=== PATIENT | female | born 1990 | race Two or more races ===

== ENCOUNTER 2024-07-18 11:40 | Emergency (ER) | payer MEDICAID, SELFPAY ==
[2024-07-18 12:16] VITALS: BP 105/72; PULSE 74; RESP 18; TEMP 37; O2SAT 98
--- NOTE | 2024-07-18 12:28 | EDNOTE_ITS ---
ED Eye Problem RME/HPI General Chief complaint: Eye Problems Stated complaint: LEFT EYE PAIN, ITCHING X1D Time Seen by Provider: 07/18/24 12:21 Source: patient Arrival date/time: 07/18/24 11:40 34-year-old female presents emergency department complaining of left eye lesion that is itchy and has been ongoing for 1 day. Mode of arrival: ambulatory Limitations: no limitations Related Data Previous Rx's ?Medication ?Instructions ?Recorded ibuprofen 800 mg tablet 800 mg PO TID PRN pain #30 tabs 02/23/21 ibuprofen 600 mg tablet 600 mg PO TID PRN pain #30 tabs 12/23/21 diphenhydramine HCl 25 mg capsule 25 mg PO TID #20 caps 08/25/22 (Benadryl) prednisone 50 mg tablet 50 mg PO QDAY #5 tabs 08/25/22 erythromycin 5 mg/gram (0.5 %) eye 0.5 inch ophthalmic (eye) QID 5 07/18/24 ointment days #3.5 grams Allergies Allergy/AdvReac Type Severity Reaction Status Date / Time acetaminophen [From Tylenol] Allergy Severe Swelling Verified 07/18/24 11:42 of Lip/Tongue/Throat Review of Systems Review of Systems Systems Reviewed: All systems reviewed, normal except as documented Constitutional Constitutional: Reports system reviewed and no additional complaints, except as documented, Denies body ache(s), Denies chills and Denies fever(s) Eyes Eyes: Reports system reviewed and no additional complaints, except as documented, Denies change in vision, Reports itchy eyes and Reports other (Lesion) ENT Ears, Nose, Mouth, and Throat: Reports system reviewed and no additional complaints, except as documented, Denies disequilibrium, Denies dizziness, Denies sore throat and Denies vertigo Cardiovascular Cardiovascular: Reports system reviewed and no additional complaints, except as documented, Denies chest pain and Denies dyspnea Respiratory Respiratory: Reports system reviewed and no additional complaints, except as documented, Denies chest congestion, Denies cough and Denies dyspnea Gastrointestinal Gastrointestinal: Reports system reviewed and no additional complaints, except as documented, Denies abdominal pain, Denies nausea and Denies vomiting Musculoskeletal Musculoskeletal: Reports system reviewed and no additional complaints, except as documented, Denies abnormal gait and Denies arthralgias Integumentary/Breasts Skin/Breast: Reports system reviewed and no additional complaints, except as documented, Denies erythema, Denies rash and Denies wounds Neurologic Neurologic: Reports system reviewed and no additional complaints, except as documented, Denies abnormal gait, Denies disequilibrium, Denies dizziness and Denies vertigo Allergic/Immunologic Allergic/Immunologic: Reports itchy eyes Past Medical History Past Medical History NEUROLOGIC: Negative Neurological Disorders CARDIAC: Negative Cardiac Disorders or Congestive Heart Failure RESPIRATORY: Negative Chronic Obstructive Pulmonary Disease (COPD) GASTROINTESTINAL: Negative Gastrointestinal Disorders GENITOURINARY: Negative Genitourinary Disorders or Renal Disease REPRODUCTIVE: Negative Pelvic Inflammatory Disease MUSCULOSKELETAL: Negative Musculoskeletal Disorders ENDOCRINE: Negative Endocrine Disorders, Diabetes Mellitus Type 1 or Diabetes Mellitus Type 2 HEMATOLOGIC: Negative Blood Disorders OTHER HISTORY: Negative Autoimmune Disease, Blood Transfusions or Cancer Surgical History SURGICAL: Positive Section Social History SMOKING STATUS: Never smoker ED Exam General Limitations: Present no limitations General appearance: Present alert and in no apparent distress Head Head exam: Present atraumatic Eye Eye exam: Present normal appearance, PERRL and EOMI Expanded Eye Exam Eyelids: left: stye ENT ENT exam: Present normal exam, normal oropharynx and mucous membranes moist Neck Neck exam: Present normal inspection, full ROM and trachea midline Chest Chest inspection: Present normal inspection and symmetric chest wall rise Respiratory Respiratory exam: Present normal lung sounds bilaterally Cardiovascular Cardiovascular exam: Present regular rate, normal rhythm and normal heart sounds Abdominal Exam Abdominal exam: Present soft and normal bowel sounds Extremities Exam Extremities exam: Present normal inspection and full ROM Back Exam Back exam: Present normal inspection and full ROM Neurological Exam Neurological exam: Present alert, oriented X3 and CN II-XII intact Psychiatric Psychiatric exam: Present normal affect and normal mood Skin Skin exam: Present warm, dry, intact and normal color Course Quality Measures none Vital Signs Vital signs: Vital Signs Temperature 98.6 F 07/18/24 12:16 Pulse Rate 74 07/18/24 12:16 Respiratory Rate 18 07/18/24 12:16 Blood Pressure 105/72 07/18/24 12:16 Pulse Oximetry (%) 98 07/18/24 12:16 Oxygen Delivery Method Room Air 07/18/24 12:16 98% room air within normal limits Eye MDM Narrative MDM Narrative:: 34-year-old female presents emergency department complaining of left eye lesion that is itchy and has been ongoing for 1 day. Patient denies any vision changes. Patient data External records reviewed:: [facility] previous records Clinical information provided by:: patient Social determinants that could affect healthcare access:: none Patient has the following chronic illnesses:: See chart How is presenting disease/condition affected by chronic disease/condition?: uneffected by Evaluation data The following diagnostics were reviewed and interpreted by me:: other (specify) (Not applicable) Lab and/or radiology exams considered but not ordered:: N/A Interpretation Summary: N/A Medications / Prescriptions Medications or Prescriptions considered but not ordered:: N/A Medication administrations:: N/A Consultations Consultation(s) initiated? (list below): No Diagnosis Eye Problem Differential Diagnosis: corneal abrasion, conjunctivitis, periorbital cellulitis and corneal ulcer Most likely diagnosis given after review of the tests above:: Hordeolum Admission Indicated Admission indicated?: not indicated Admission Request Was there a request for admission?: No Disposition Plan Disposition Plan: Discharge Discharge Attestation Discharge Attestation: The patient and all family members were given an opportunity to ask questions and understood the discharge instructions. Discharge instructions specifically effects, indications for sooner follow up or return to the emergency department, and the expected course of current diagnosis. Patient condition: Stable Discharge Plan Plan Patient Disposition: HOME (Self Care) Disposition Comment: Stable Prescriptions/Referrals Prescriptions/Med Rec: New erythromycin 5 mg/gram (0.5 %) ointment 0.5 inch ophthalmic (eye) QID 5 Days Qty: 3.5 0RF No Action ibuprofen 800 mg tablet 800 mg PO TID PRN (Reason: pain) Qty: 30 0RF ibuprofen 600 mg tablet 600 mg PO TID PRN (Reason: pain) Qty: 30 0RF diphenhydramine HCl [Benadryl] 25 mg capsule 25 mg PO TID Qty: 20 0RF prednisone 50 mg tablet 50 mg PO QDAY Qty: 5 0RF Problem List Clinical Impression: Hordeolum Patient/Caregiver Discharge Instructions Discharge Activity: activity as tolerated Education Materials: ED Sty Additional Instructions: Warm compress as needed Apply medication as prescribed. Follow-up with primary care provider in 2 to 3 days. Return to emergency department for any worsening symptoms or as needed. Print Language: Hungarian Stand Alone Forms: Rose Award Info., Patient Portal Info Letter PA/TRAN Supervising Physician PA/TRAN Supervising Physician: Dr. Santana
== END 2024-07-18 13:21 | disposition home or self-care (01) ==
LOC: SERX 12:57
PROVIDERS: Emergency Provider Emergency Medicine
DX: H00.016 Hordeolum externum left eye, unspecified eyelid (principal)
CPT/HCPCS: 99281

== ENCOUNTER 2025-02-28 17:32 | Emergency (ER) | payer MEDICAID, SELFPAY ==
[2025-02-28 18:08] VITALS: BP 146/88; PULSE 73; RESP 18; TEMP 37.2; O2SAT 99
--- NOTE | 2025-02-28 18:46 | XR_ITS ---
Examination: Abdomen sonogram, complete Date and time of exam: February 28, 2025 1858 hours INDICATIONS: Right upper abdominal pain beginning today. Technique: Multiple real-time grayscale transabdominal sonographic images of the abdomen have been obtained. Findings: Multiple gallstones Gallbladder wall 0.37 cm but the gallbladder is contracted Coronal and 0.3 cm Pancreaticoduodenal Travis 5 cm Aorta not enlarged Liver 15.1 cm fatty infiltration no focal liver lesions Normal hepatopedal portal venous flow Patent IVC Right kidney 9.8 cm renal cortex 2.0 cm Left kidney 9.6 cm cortex 1.9 cm Mild left hydronephrosis Spleen 10.0 cm IMPRESSION: Cholelithiasis, negative for cholecystitis Mild left hydronephrosis, clinical correlation is advised
--- NOTE | 2025-02-28 18:50 | PD.EDADULT ---
ED General RME/HPI General Chief complaint: Shortness of Breath/Dyspnea Stated complaint: SOB, right shoulder pain today Time Seen by Provider: 02/28/25 18:18 Arrival date/time: 02/28/25 17:32 RME / HPI RME / HPI narrative: 35-year-old female presents to the ED with a complaint of right shoulder pain and shortness of breath. She states all of her symptoms began last week when she had some upper abdominal pain with nausea and fever. She states the pain is worse after eating so she is only been eating very tiny amounts and drinking a lot of water. Her fever ended last week. Related Data Previous Rx's ?Medication ?Instructions ?Recorded ibuprofen 800 mg tablet 800 mg PO TID PRN pain #30 tabs 02/23/21 ibuprofen 600 mg tablet 600 mg PO TID PRN pain #30 tabs 12/23/21 diphenhydramine HCl 25 mg capsule 25 mg PO TID #20 caps 08/25/22 (Benadryl) prednisone 50 mg tablet 50 mg PO QDAY #5 tabs 08/25/22 Allergies Allergy/AdvReac Type Severity Reaction Status Date / Time acetaminophen (From Tylenol) Allergy Severe Swelling Verified 02/28/25 17:37 of Lip/Tongue/Throat Review of Systems Review of Systems Systems Reviewed: All systems reviewed, normal except as documented Past Medical History Past Medical History NEUROLOGIC: Negative Neurological Disorders CARDIAC: Negative Cardiac Disorders or Congestive Heart Failure RESPIRATORY: Negative Chronic Obstructive Pulmonary Disease (COPD) GASTROINTESTINAL: Negative Gastrointestinal Disorders GENITOURINARY: Negative Genitourinary Disorders or Renal Disease REPRODUCTIVE: Negative Pelvic Inflammatory Disease MUSCULOSKELETAL: Negative Musculoskeletal Disorders ENDOCRINE: Negative Endocrine Disorders, Diabetes Mellitus Type 1 or Diabetes Mellitus Type 2 HEMATOLOGIC: Negative Blood Disorders OTHER HISTORY: Negative Autoimmune Disease, Blood Transfusions or Cancer Surgical History SURGICAL: Positive Section Social History SMOKING STATUS: Never smoker ED Exam Narrative Physical exam: A&O, afebrile and non-toxic appearing 35-year-old female, no acute distress. Lung sounds are clear, RRR, Abdomen is soft, mild generalized tenderness with moderate tenderness in the right upper quadrant. No rebound or guarding. Abdomen is non-distended. Moves all extremities well. Course Course Course Narrative: CBC reveals a an elevated white count of 12.4, normal H&H, normal platelets, minimally elevated ANC of 7.8. CMP reveals normal electrolytes with the exception of a minimally elevated glucose of 107, normal renal function, normal liver function, total bilirubin is normal at 0.3, amylase and lipase are normal at 61/34. Urinalysis reveals clear colorless urine with a specific gravity 1.012 with negative nitrites, negative leukocyte esterase and no bacteria. Abd US: Cholelithiasis, negative for cholecystitis. Mild left hydronephrosis, clinical correlation is advised. Quality Measures none Orders Category Date Time Status NPO STAT Care 02/28/25 18:46 Active US abdomen Stat Exams 02/28/25 18:46 Completed Amylase Stat Lab 02/28/25 20:00 Completed CBC Stat Lab 02/28/25 20:00 Completed Comprehensive Metabolic Panel Stat Lab 02/28/25 20:00 Completed HCG Qualitative,Urine Stat Lab 02/28/25 18:53 Completed Lipase Stat Lab 02/28/25 20:00 Completed Magnesium Stat Lab 02/28/25 20:00 Completed Phosphorous Stat Lab 02/28/25 20:00 Completed Urinalysis, C/S if Indicated Stat Lab 02/28/25 18:53 Completed Ketorolac Inj [Toradol Inj] Med 02/28/25 18:45 Discontinued 30 mg IM X1 ONE Ondansetron Inj [Zofran Inj] Med 02/28/25 18:46 Discontinued 4 mg IVP X1 ONE Ondansetron Odt [Zofran Odt] Med 02/28/25 19:42 Discontinued 4 mg PO X1 ONE Vital Signs Vital signs: Vital Signs Temperature 99.0 F 02/28/25 18:08 Pulse Rate 73 02/28/25 18:08 Respiratory Rate 18 02/28/25 18:08 Blood Pressure 146/88 H 02/28/25 18:08 Pulse Oximetry (%) 99 02/28/25 18:08 Oxygen Delivery Method Room Air 02/28/25 18:08 Discharge Plan Plan Patient Disposition: HOME (Self Care) Discharge Disposition comment: Stable Prescriptions/Referrals Prescriptions/Med Rec: No Action ibuprofen 800 mg tablet 800 mg PO TID PRN (Reason: pain) Qty: 30 0RF ibuprofen 600 mg tablet 600 mg PO TID PRN (Reason: pain) Qty: 30 0RF diphenhydramine HCl [Benadryl] 25 mg capsule 25 mg PO TID Qty: 20 0RF prednisone 50 mg tablet 50 mg PO QDAY Qty: 5 0RF Referrals: No Primary/Family,Physician [Primary Care Provider] - In 1 week Problem List Clinical Impression: Cholelithiasis, Biliary colic Patient/Caregiver Discharge Instructions Education Materials: What Are Gallstones, Treating Gallstones, ED Gallstones with Biliary Colic Additional Instructions: Contacte a johnson m?dico de cabecera para que le derive a un cirujano para la extirpaci?n electiva de la ves?cula biliar. Regrese a urgencias ante cualquier s?ntoma nuevo o que empeore, tomasz fiebre, v?mitos o aumento del dolor. Print Language: Citizen Of [place] Stand Alone Forms: Rose Award Info., Patient Portal Info Letter PA/ASSISTANT FOOD SERVICE DIRECTOR Supervising Physician PA/ASSISTANT FOOD SERVICE DIRECTOR Supervising Physician: Dr. Layton [facility] Narrative MDM hospital course: Symptoms, exam and diagnostic studies are consistent with: Cholelithiasis without cholecystitis. Patient was discharged home in stable condition. Patient/family advised to follow-up with their PCP in 24-48 hours. Encouraged to return to the ED for any new or worsening symptoms. Clinical Information Provided by patient (Through manager training and development) Medical Records Reviewed None Meds/Rx Considered, not Ordered None Describe details: N/A Labs/Rad/Tests considered, not Ordered None Describe details: N/A Chronic Illness/Social Conditions which may negatively complicate care or outcome(s)-explain: None or not applicable EKG EKG not done EKG Interpretation narrative: N/A Lab Interpretation Labs: interpreted by mi Lab(s) interpretation(s): As noted above Imaging Imaging interpretation: see narrative above Provider imaging interpretation(s): N/A Radiology reports / interpretation(s): As noted above Medication Administration(s) Medication Administration History Discontinued Medications Ketorolac Tromethamine (Ketorolac Inj 60 Mg/2 Ml Vial) 30 mg IM X1 ONE Stop: 02/28/25 18:46 Last Admin: 02/28/25 19:58 Dose: 30 mg Documented By: Ondansetron HCl (Ondansetron Inj 2 Mg/Ml Inj 2 Ml) 4 mg IVP X1 ONE; Protocol Stop: 02/28/25 18:47 Last Admin: 02/28/25 19:41 Dose: Not Given Documented By: Non-Admin Reason: Cancelled by Provider Comments: error in route. Ondansetron HCl (Ondansetron Odt 4 Mg Tabrap) 4 mg PO X1 ONE; Protocol Stop: 02/28/25 19:43 Last Admin: 02/28/25 19:57 Dose: 4 mg Documented By: As noted above Diagnosis Differential diagnosis: Cholelithiasis, cholecystitis, pancreatitis, gastritis Differential dx and/or dx ruled out: Cholecystitis, pancreatitis Most likely dx, and/or detailed dx discussion: Cholelithiasis with biliary colic Dispositon Disposition: Discharge Home Disposition comments: Patient is stable for discharge
[2025-02-28 18:59] LABS: Collection Type, Urine Clean Catch
[2025-02-28 19:04] LABS: Bilirubin,Urine Negative (Negative); Blood,Urine Negative (Negative); Clarity,Urine Clear (Clear/Hazy); Color,Urine Colorless (Lt Yel-Yel); Culture Indicated,Urine Not Indicated; Glucose, Urine Negative (Negative); Ketones,Urine Negative (Negative); Leukocyte Esterase,Urine Negative (Negative); Nitrite,Urine Negative (Negative); PH,Urine 5.5 (5.0-7.0); Protein,Urine Negative (Neg - Trace); RBC,Urine 1 /hpf (0-3); Specific Gravity,Urine 1.012 (1.001-1.035); Squamous Epithelial Cell,Urine 6 /hpf (0-5); Urobilinogen,Urine Negative mg/dL (0.0-1.0); WBC,Urine 1 /hpf (0-5)
[2025-02-28 19:07] LABS: HCG Qualitative,Urine Negative
--- NOTE | 2025-02-28 19:42 | PC.NURSE ---
IVP Zofran canceled by provider, new order for Zofran ODT 4mg PO x1 now. Pharmacy aware.
[2025-02-28] MEDS: ONDANSETRON ODT 4 MG TABRAP PO (19:57)
[2025-02-28] MEDS: KETOROLAC INJ 60 MG/2 ML VIAL 30 MG IM (19:58)
[2025-02-28 20:14] LABS: Basophils # (Auto) 0.1 Thou/mm3 (0.0-0.2); Basophils % (Auto) 1 % (0-2.5); Eosinophils # (Auto) 0.3 Thou/mm3 (0.0-0.5); Eosinophils % (Auto) 3 % (0-10); Hematocrit 41.3 % (36.0-46.0); Hemoglobin 14.4 g/dL (12.0-16.0); Immature Granulocytes Auto 0.05 Thou/mm3 (0.00-0.00); Lymphocytes # (Auto) 3.4 Thou/mm3 (1.0-4.8); Lymphocytes % (Auto) 28 % (10-50); Mean Corpuscular HGB Conc 34.9 g/dl (31.0-37.0); Mean Corpuscular Hemoglobin 29.8 pg (25.0-35.0); Mean Corpuscular Volume 85 fL (80-100); Monocytes # (Auto) 0.7 Thou/mm3 (0.0-0.8); Monocytes % (Auto) 6 % (0-12); Neutrophils # (Auto) 7.8 Thou/mm3 (1.8-7.7); Neutrophils % (Auto) 63 % (37-80); Nucleated Red Blood Cell # 0.00 Thou/mm3 (0.00-0.00); Nucleated Red Blood Cell % 0 /100 WBC (0); Platelet Count 397 Thou/mm3 (140-440); RDW Standard Deviation 38.2 fL (36.4-46.3); Red Blood Count 4.84 Miln/mm3 (4.00-5.20); White Blood Count 12.4 Thou/mm3 (3.6-11.0)
[2025-02-28 20:35] LABS: Alanine Aminotransferase 12 U/L (10-49); Albumin, Serum 4.5 gm/dL (3.5-5.0); Albumin/Globulin Ratio 1.6 (1.2-2.2); Alkaline Phosphatase 154 U/L (46-116); Amylase 61 U/L (30-118); Anion Gap 9 (7-16); Aspartate Amino Transferase 12 U/L (0-34); BUN/Creatinine Ratio 17 Ratio (12-20); Bilirubin,Total 0.3 mg/dL (0.3-1.2); Blood Urea Nitrogen 17 mg/dL (9-23); Calcium 9.8 mg/dL (8.3-10.6); Calcium (Corrected) 9.8 mg/dL (8.5-10.1); Carbon Dioxide 28.0 mMol/L (20.0-31.0); Chloride 103 mMol/L (98-107); Creatinine (Component) 1.0 mg/dL (0.6-1.3); Globulin 2.9 gm/dL (2.3-3.5); Glucose 107 mg/dL (74-106); Lipase 34 U/L (12-53); Magnesium 1.7 mg/dL (1.6-2.6); Osmolality,Calculated 280 (275-295); Phosphorous 4.4 mg/dL (2.4-5.1); Potassium 3.5 mMol/L (3.4-5.1); Sodium 140 mMol/L (136-145); Total Protein 7.4 gm/dL (5.7-8.2); eGFR > 60 See Note
--- NOTE | 2025-02-28 20:51 | EDRME_ITS ---
Rapid Medical Screening Exam [facility] Arrival date/time: 02/28/25 17:32 35-year-old female presents to the ED with a complaint of right shoulder pain and shortness of breath. She states all of her symptoms began last week when she had some upper abdominal pain with nausea and fever. She states the pain is worse after eating so she is only been eating very tiny amounts and drinking a lot of water. Her fever ended last week. Chief Complaint: Shortness of Breath/Dyspnea Time Seen by Provider: 02/28/25 18:18 Vital signs: Vital Signs Temperature 99.0 F 02/28/25 18:08 Pulse Rate 73 02/28/25 18:08 Respiratory Rate 18 02/28/25 18:08 Blood Pressure 146/88 H 02/28/25 18:08 Pulse Oximetry (%) 99 02/28/25 18:08 Oxygen Delivery Method Room Air 02/28/25 18:08 RME Narrative: 35-year-old female presents to the ED with a complaint of right shoulder pain and shortness of breath. She states all of her symptoms began last week when she had some upper abdominal pain with nausea and fever. She states the pain is worse after eating so she is only been eating very tiny amounts and drinking a lot of water. Her fever ended last week.
[2025-02-28 22:42] VITALS: BP 126/85; PULSE 59; RESP 18; TEMP 36.4; O2SAT 99
[2025-02-28 23:16] VITALS: RESP 18
== END 2025-02-28 23:17 | disposition home or self-care (01) ==
PROVIDERS: Physician Assistant; Emergency Provider Family Medicine
DX: K80.20 Calculus of gallbladder without cholecystitis without obstruction (principal); N13.30 Unspecified hydronephrosis; D72.829 Elevated white blood cell count, unspecified
CPT/HCPCS: 36415; 76700; 80053; 81001; 81025; 82150; 83690; 83735; 84100; 85025; 96372; 99283; J1885; Q0162

== ENCOUNTER 2025-07-17 03:31 | Emergency (ER) | payer MEDICAID, SELFPAY ==
[2025-07-17 03:33] VITALS: BMI 27.3
[2025-07-17 03:58] VITALS: BP 122/87; PULSE 72; RESP 16; TEMP 36.6; O2SAT 98
--- NOTE | 2025-07-17 05:07 | XR_ITS ---
Examination: CT abdomen and pelvis without contrast. Coronal 3-D reconstructions. Sagittal 2-D reconstructions. Date and time of exam: July 17, 2025, 0615 hours INDICATIONS: Epigastric pain beginning this morning CTDI: vol (mGy): 9.26 DLP: (mGycm): 513 Technique: Axial images of the abdomen have been obtained, 3 mm slice thickness Intravenous contrast material has not been administered. Low dose protocols were performed. One or more of the following dose reduction techniques were used; automated exposure control, adjustment of the mA and/or KV according to patient size, use of iterative reconstruction technique. Findings: No focal liver or splenic lesions Gallstones Gallbladder wall appears mildly thickened No extrahepatic biliary tract dilatation Pancreas is not enlarged no peripancreatic edema Normal adrenal glands No renal or ureteral calculi, no hydronephrosis Aorta normal size Normal appendix Small fat-containing umbilical hernia No bowel obstruction or diverticulitis Intact urinary bladder Anteverted uterus No pelvic mass Intact osseous structures IMPRESSION: Cholelithiasis, recommend hepatobiliary sonography to exclude cholecystitis No common bile duct stones Normal appendix No bowel obstruction or diverticulitis
--- NOTE | 2025-07-17 05:08 | PD.EDRME ---
Rapid Medical Screening Exam RME Arrival date/time: 07/17/25 03:31 This is a case of 35-year-old female who came in in the emergency room due to abdominal pain after eating spicy food patient have on and off abdominal pain for 1 week which become worse today associated with nausea vomiting denies diarrhea constipation or blood in stool Chief Complaint: Abdominal Pain Time Seen by Provider: 07/17/25 05:07 Vital signs: Vital Signs Temperature 97.9 F 07/17/25 03:58 Pulse Rate 72 07/17/25 03:58 Respiratory Rate 16 07/17/25 03:58 Blood Pressure 122/87 H 07/17/25 03:58 Pulse Oximetry (%) 98 07/17/25 03:58 Oxygen Delivery Method Room Air 07/17/25 03:58 Exam: Patient have tenderness on the epigastric area and periumbilical area with mild tenderness in the left lower quadrant no guarding no rebound no rigidity Clinical Impression: Abdominal pain
[2025-07-17] MEDS: ONDANSETRON ODT 4 MG TABRAP PO (05:30)
[2025-07-17] MEDS: MG HYD/AL HYD/SIME (Maalox Reg) SUSP 30 ML UDC PO (05:30)
[2025-07-17] MEDS: FAMOTIDINE 20 MG TABLET 40 MG PO (05:30)
[2025-07-17] MEDS: LIDOCAINE VISCOUS 2% 15 ML UDC PO (05:30)
[2025-07-17 05:33] LABS: Collection Type, Urine Clean Catch
[2025-07-17 05:40] LABS: Basophils # (Auto) 0.1 Thou/mm3 (0.0-0.2); Basophils % (Auto) 1 % (0-2.5); Eosinophils # (Auto) 0.1 Thou/mm3 (0.0-0.5); Eosinophils % (Auto) 1 % (0-10); Hematocrit 42.7 % (36.0-46.0); Hemoglobin 14.3 g/dL (12.0-16.0); Immature Granulocytes Auto 0.04 Thou/mm3 (0.00-0.00); Lymphocytes # (Auto) 2.3 Thou/mm3 (1.0-4.8); Lymphocytes % (Auto) 22 % (10-50); Mean Corpuscular HGB Conc 33.5 g/dl (31.0-37.0); Mean Corpuscular Hemoglobin 28.8 pg (25.0-35.0); Mean Corpuscular Volume 86 fL (80-100); Monocytes # (Auto) 0.6 Thou/mm3 (0.0-0.8); Monocytes % (Auto) 6 % (0-12); Neutrophils # (Auto) 7.2 Thou/mm3 (1.8-7.7); Neutrophils % (Auto) 70 % (37-80); Nucleated Red Blood Cell # 0.00 Thou/mm3 (0.00-0.00); Nucleated Red Blood Cell % 0 /100 WBC (0); Platelet Count 376 Thou/mm3 (140-440); RDW Standard Deviation 38.9 fL (36.4-46.3); Red Blood Count 4.96 Miln/mm3 (4.00-5.20); White Blood Count 10.3 Thou/mm3 (3.6-11.0)
[2025-07-17 05:42] LABS: HCG Qualitative,Urine Negative
[2025-07-17 05:43] LABS: Bilirubin,Urine Negative (Negative); Blood,Urine Negative (Negative); Clarity,Urine Clear (Clear/Hazy); Color,Urine Colorless (Lt Yel-Yel); Glucose, Urine Negative (Negative); Ketones,Urine Trace (Negative); Leukocyte Esterase,Urine Negative (Negative); Nitrite,Urine Negative (Negative); PH,Urine 6.0 (5.0-7.0); Protein,Urine Negative (Neg - Trace); RBC,Urine 2 /hpf (0-3); Specific Gravity,Urine 1.024 (1.001-1.035); Squamous Epithelial Cell,Urine 7 /hpf (0-5); Urobilinogen,Urine Negative mg/dL (0.0-1.0); WBC,Urine < 1 /hpf (0-5)
[2025-07-17 05:53] LABS: Alanine Aminotransferase 16 U/L (10-49); Albumin, Serum 4.6 gm/dL (3.5-5.0); Albumin/Globulin Ratio 1.6 (1.2-2.2); Alkaline Phosphatase 128 U/L (46-116); Anion Gap 12 (7-16); Aspartate Amino Transferase 19 U/L (0-34); BUN/Creatinine Ratio 17 Ratio (12-20); Bilirubin,Total 0.3 mg/dL (0.3-1.2); Blood Urea Nitrogen 12 mg/dL (9-23); Calcium 9.2 mg/dL (8.3-10.6); Calcium (Corrected) 9.2 mg/dL (8.5-10.1); Carbon Dioxide 26.4 mMol/L (20.0-31.0); Chloride 103 mMol/L (98-107); Creatinine (Component) 0.7 mg/dL (0.6-1.3); Estimated Creatinine Clearance 91.5 mL/min (>60); Globulin 2.9 gm/dL (2.3-3.5); Glucose 123 mg/dL (74-106); Lipase 32 U/L (12-53); Osmolality,Calculated 281 (275-295); Potassium 3.6 mMol/L (3.4-5.1); Sodium 141 mMol/L (136-145); Total Protein 7.5 gm/dL (5.7-8.2); eGFR > 60 See Note
[2025-07-17 08:09] VITALS: BP 119/75; PULSE 61; RESP 17; TEMP 36.7; O2SAT 99
--- NOTE | 2025-07-17 08:11 | PC.NURSE ---
PT IN FOR EPIGASTRIC PAIN THAT STARTED AROUND 0200 THIS MORNING FROM HER SLEEP. PT STATES THAT SHE HAS HAD THIS TYPE OF PAIN IN THE PAST WITH LEFT SHOULDER PAIN. AT THAT TIME PT WAS INFORMED THAT SHE HAD GALLSTONES. PT HAS NOT FOLLOWED UP WITH SURGON. PT DID NOT FOLLOW UP WITH PMD. PT CAME IN TODAY FOR SIMILAR PAIN. PT IS A/OX4, RATES PAIN AT 9/10, DECRIBES IS SHARP PAIN AND IS ISOLATED TO EPIGASTRIC AREA. PT DID NOT TAKE ANY PAIN MEDICATION PRIOR TO ARRIVAL. CALL LIGHT WITH IN REACH. PT AWAITING TO BE SEEN BY .
[2025-07-17 08:47] VITALS: BP 119/75; PULSE 65; O2SAT 98
--- NOTE | 2025-07-17 12:08 | PD.EDABDPN ---
ED Abdominal Pain RME/HPI General Chief Complaint: Abdominal Pain Stated complaint: EPIGASTRIC PAIN Time seen by provider: 07/17/25 05:07 Arrival date/time: 07/17/25 03:31 Limitations: no limitations RME / HPI RME / HPI narrative: DR. LINN AUGUSTE ED EVALUATION: 35-year-old female who presented to the emergency department with left upper quadrant and epigastric pain. Patient states she has had the pain since yesterday. She denies nausea, vomiting, diarrhea, fevers, shakes, chills, sweats. No chest pain or dyspnea. No recent cough. She has been eating normally with normal and regular bowel movements. No further medical complaints. Related Data Previous Rx's ?Medication ?Instructions ?Recorded ibuprofen 800 mg tablet 800 mg PO TID PRN pain #30 tabs 02/23/21 ibuprofen 600 mg tablet 600 mg PO TID PRN pain #30 tabs 12/23/21 diphenhydramine HCl 25 mg capsule 25 mg PO TID #20 caps 08/25/22 (Benadryl) prednisone 50 mg tablet 50 mg PO QDAY #5 tabs 08/25/22 meloxicam 15 mg tablet 15 mg PO QDAY #10 tabs 02/28/25 ondansetron 4 mg disintegrating 4 mg PO Q6H PRN nausea and 02/28/25 tablet vomiting #10 tabs famotidine 20 mg tablet (Pepcid) 20 mg PO BID GERD 7 days #14 tabs 07/17/25 Allergies Allergy/AdvReac Type Severity Reaction Status Date / Time acetaminophen (From Tylenol) Allergy Severe Swelling Verified 02/28/25 17:37 of Lip/Tongue/Throat Review of Systems Review of Systems Systems Reviewed: All systems reviewed, normal except as documented Past Medical History Past Medical History GASTROINTESTINAL: Positive Gastrointestinal Disorders and Gall Bladder Disease (STONES) Surgical History SURGICAL: Positive Section (X5) Social History SMOKING STATUS: Never smoker SUBSTANCE USE: does not use ALCOHOL: Never ED Exam General Limitations: Present no limitations General appearance: Present alert and in no apparent distress Head Head exam: Present atraumatic, normocephalic and normal inspection Eye Eye exam: Present normal appearance, PERRL and EOMI ENT ENT exam: Present normal exam, normal oropharynx and mucous membranes moist Neck Neck exam: Present normal inspection, full ROM and trachea midline Chest Chest inspection: Present normal inspection and symmetric chest wall rise Respiratory Respiratory exam: Present normal lung sounds bilaterally Cardiovascular Cardiovascular exam: Present regular rate, normal rhythm and normal heart sounds Abdominal Exam Abdominal exam: Present soft and normal bowel sounds; Absent tenderness (Patient has absolutely no abdominal tenderness whatsoever to palpation. She certainly has no right upper quadrant tenderness to even deep palpation. No right lower quadrant tenderness. No rigidity, rebound, guarding. Negative CVA tenderness bilaterally. ) Extremities Exam Extremities exam: Present normal inspection and full ROM Back Exam Back exam: Present normal inspection and full ROM; Absent CVA tenderness (R) or CVA tenderness (L) Neurological Exam Neurological exam: Present alert, oriented X3 and CN II-XII intact Psychiatric Psychiatric exam: Present normal affect and normal mood Skin Skin exam: Present warm, dry, intact and normal color Course Quality Measures none Orders Category Date Time Status CT abdomen pelvis wo con Stat Exams 07/17/25 05:07 Completed CBC Stat Lab 07/17/25 05:29 Completed Comprehensive Metabolic Panel Stat Lab 07/17/25 05:29 Completed HCG Qualitative,Urine Stat Lab 07/17/25 05:23 Completed Lipase Stat Lab 07/17/25 05:29 Completed Urinalysis Stat Lab 07/17/25 05:23 Completed Famotidine [Pepcid] Med 07/17/25 05:12 Discontinued 40 mg PO X1 ONE Lidocaine 2% Viscous [Xylocaine 2% Viscous] Med 07/17/25 05:12 Discontinued 15 ml PO X1 ONE Ondansetron Odt [Zofran Odt] Med 07/17/25 05:13 Discontinued 4 mg PO X1 ONE mg Hyd/Al Hyd/Kayleen Susp [Maalox Susp] Med 07/17/25 05:12 Discontinued 30 ml PO X1 ONE Vital Signs Vital signs: Vital Signs Temperature 97.9 F 07/17/25 03:58 Pulse Rate 72 07/17/25 03:58 Respiratory Rate 16 07/17/25 03:58 Blood Pressure 122/87 H 07/17/25 03:58 Pulse Oximetry (%) 98 07/17/25 03:58 Oxygen Delivery Method Room Air 07/17/25 03:58 Abdominal Pain MDM MDM Narrative MDM Narrative:: I, Yolande Tariq am scribing for and in the presence of Dr. Tellez. 35-year-old female with LUQ and epigastric pain and a completely benign abdominal exam. Workup initiated to evaluate for gastrointestinal causes. Differential diagnoses include gastritis, dyspepsia, and musculoskeletal pain. Patient had blood work, urine as well as a CT abdomen pelvis. The CT is being read as showing Cholelithiasis but no evidence of cholecystitis. Dr. Milan recommended a right upper quadrant ultrasound however patient has absolutely no tenderness there whatsoever. I do not feel that it is warranted. Patient's blood work is very reassuring. Her CBC is normal. No leukocytosis. Electrolytes are normal, renal functions normal, liver function tests are normal, lipase is normal. Urinalysis shows no evidence of or UTI. No hematuria. I recommended that the patient follow-up with her primary care doctor or in the [facility] clinic within the next several days and she agreed to do so. Also will write a prescription for Pepcid hopefully this will help patient. Patient data External records reviewed:: [facility] previous records Clinical information provided by:: patient Social determinants that could affect healthcare access:: none Patient has the following chronic illnesses:: Gallstones and x5 sections. How is presenting disease/condition affected by chronic disease/condition?: exacerbated by Evaluation data The following diagnostics were reviewed and interpreted by me:: lab results and radiology exam(s) Lab and/or radiology exams considered but not ordered:: none Interpretation Summary: See MDM narrative above. RADIOLOGY Procedure(s): CT abdomen pelvis wo [facility] Accession Number(s): [id number] cc: Keshawn Melendrez MD; NO PRIMARY/FAMILY,PHYSICIAN; Arturo Dominguez~ Examination: CT abdomen and pelvis without contrast. Coronal 3-D reconstructions. Sagittal 2-D reconstructions. Date and time of exam: July 17, 2025, 0615 hours INDICATIONS: Epigastric pain beginning this morning CTDI: vol (mGy): 9.26 DLP: (mGycm): 513 Technique: Axial images of the abdomen have been obtained, 3 mm slice thickness Intravenous contrast material has not been administered. Low dose protocols were performed. One or more of the following dose reduction techniques were used; automated exposure control, adjustment of the mA and/or KV according to patient size, use of iterative reconstruction technique. Findings: No focal liver or splenic lesions Gallstones Gallbladder wall appears mildly thickened No extrahepatic biliary tract dilatation Pancreas is not enlarged no peripancreatic edema Normal adrenal glands No renal or ureteral calculi, no hydronephrosis Aorta normal size Normal appendix Small fat-containing umbilical hernia No bowel obstruction or diverticulitis Intact urinary bladder Anteverted uterus No pelvic mass Intact osseous structures IMPRESSION: Cholelithiasis, recommend hepatobiliary sonography to exclude cholecystitis No common bile duct stones Normal appendix No bowel obstruction or diverticulitis Dictated By: Keshawn Melendrez MD Medications / Prescriptions Medications or Prescriptions considered but not ordered:: none Medication administrations:: Medication Administration History Discontinued Medications Al Hydrox/Mg Hydrox/Simethicone (Mg Hyd/Al Hyd/Kyaleen (Maalox Reg) Susp 30 Ml Udc) 30 ml PO X1 ONE Stop: 07/17/25 05:13 Last Admin: 07/17/25 05:30 Dose: 30 ml Documented By: ROSANNA Famotidine (Famotidine 20 Mg Tablet) 40 mg PO X1 ONE Stop: 07/17/25 05:13 Last Admin: 07/17/25 05:30 Dose: 40 mg Documented By: ROSANNA Lidocaine HCl (Lidocaine Viscous 2% 15 Ml Udc) 15 ml PO X1 ONE Stop: 07/17/25 05:13 Last Admin: 07/17/25 05:30 Dose: 15 ml Documented By: ROSANNA Ondansetron HCl (Ondansetron Odt 4 Mg Tabrap) 4 mg PO X1 ONE; Protocol Stop: 07/17/25 05:14 Last Admin: 07/17/25 05:30 Dose: 4 mg Documented By: ROSANNA see above Consultations Consultation(s) initiated? (list below): No Diagnosis Differential diagnosis abdominal pain: other (gastritis, dyspepsia, and musculoskeletal pain) Most likely diagnosis given after review of the tests above:: Abdominal pain Acute epigastric pain Admission Indicated Admission indicated?: not indicated Admission Request Was there a request for admission?: No Disposition Plan Disposition Plan: Discharge Discharge Attestation Discharge Attestation: The patient and all family members were given an opportunity to ask questions and understood the discharge instructions. Discharge instructions specifically effects, indications for sooner follow up or return to the emergency department, and the expected course of current diagnosis. Patient condition: Stable Discharge Plan Plan Patient Disposition: HOME (Self Care) Discharge Disposition comment: Stable for discharge home Patient condition on transfer: Stable Prescriptions/Referrals Prescriptions/Med Rec: New famotidine [Pepcid] 20 mg tablet 20 mg PO BID 7 Days Qty: 14 0RF No Action ibuprofen 800 mg tablet 800 mg PO TID PRN (Reason: pain) Qty: 30 0RF ibuprofen 600 mg tablet 600 mg PO TID PRN (Reason: pain) Qty: 30 0RF diphenhydramine HCl [Benadryl] 25 mg capsule 25 mg PO TID Qty: 20 0RF prednisone 50 mg tablet 50 mg PO QDAY Qty: 5 0RF ondansetron 4 mg tablet,disintegrating 4 mg PO Q6H PRN (Reason: nausea and vomiting) Qty: 10 0RF meloxicam 15 mg tablet 15 mg PO QDAY Qty: 10 0RF Referrals: [facility] [Provider Group] - In 1 week Problem List Clinical Impression: Abdominal pain, Acute epigastric pain Patient/Caregiver Discharge Instructions Discharge Activity: activity as tolerated Education Materials: Abdominal Pain, ED Epigastric Pain (Uncertain Cause) Additional Instructions: Is very important that you follow-up in the family health care clinic or with your primary care doctor within the next several days. Today you were evaluated for abdominal pain. We performed blood work as well as urine tests and a CT scan of your abdomen and pelvis. We found no abnormalities there. We did find stones in your gallbladder but no evidence that your gallbladder is causing your pain. I have written a prescription for a medicine called Pepcid. You should fill that prescription and take as directed for the next 7 days. As always, if your abdominal pain gets worse or you feel like you are worsening in any way please return to the ER right away we will help you Print Language: Lithuanian Stand Alone Forms: Rose Award Info., Patient Portal Info Letter
== END 2025-07-17 08:47 | disposition home or self-care (01) ==
PROVIDERS: Nurse Practitioner Family; Emergency Provider Emergency Medicine
DX: K80.20 Calculus of gallbladder without cholecystitis without obstruction (principal)
CPT/HCPCS: 36415; 74176; 80053; 81001; 81025; 83690; 85025; 99283; J3490; Q0162; A9270